=== PATIENT | female | born 1955 | race Asian ===

== ENCOUNTER 2017-10-11 08:00 | Day surgery (SDC) | payer OTHER ==
[2017-10-11] MEDS ORDERED: MIDAZOLAM HCL 5 MG/5 ML VIAL ONE (08:57)
[2017-10-11] MEDS ORDERED: SIMETHICONE 40 MG/0.6 ML ML ONE (08:58)
[2017-10-11] MEDS ORDERED: GLYCOPYRROLATE 0.2 MG/ML VIAL ONE (08:58)
[2017-10-11] MEDS: MIDAZOLAM HCL 5 MG/5 ML VIAL ONE ×2 (10:22→10:28)
[2017-10-11] MEDS: MEPERIDINE HCL/PF 100 MG/ML AMP ONE ×3 (10:22→10:26)
[2017-10-11 12:27] VITALS: BP_SYST 110
== END 2017-10-11 11:45 | disposition home or self-care (01) ==
LOC: SDS 08:00
PROVIDERS: ATTEND Colon & Rectal Surgery
DX: Z12.11 Encounter for screening for malignant neoplasm of colon (principal); Z88.8 Allergy status to other drugs, medicaments and biological substances; Z79.899 Other long term (current) drug therapy; F41.9 Anxiety disorder, unspecified; I10 Essential (primary) hypertension; M50.10 Cervical disc disorder with radiculopathy, unspecified cervical region; E11.40 Type 2 diabetes mellitus with diabetic neuropathy, unspecified; E78.5 Hyperlipidemia, unspecified; E11.36 Type 2 diabetes mellitus with diabetic cataract; M19.90 Unspecified osteoarthritis, unspecified site; H40.1130 Primary open-angle glaucoma, bilateral, stage unspecified; R00.0 Tachycardia, unspecified; F32.3 Major depressive disorder, single episode, severe with psychotic features; Z85.3 Personal history of malignant neoplasm of breast; Z98.890 Other specified postprocedural states; Z83.3 Family history of diabetes mellitus; Z80.0 Family history of malignant neoplasm of digestive organs; Z90.49 Acquired absence of other specified parts of digestive tract; Z90.710 Acquired absence of both cervix and uterus
CPT/HCPCS: 45378; 82962; J2175; J2250; J3490